=== PATIENT | male | born 1970 | race Caucasian/White ===

== ENCOUNTER 2016-10-27 16:33 | Emergency (ER) | payer SELFPAY ==
[~2016-10-27] VITALS: Ht 193 cm; Wt 77.0 kg
[~2016-10-27 16:33] MED LIST: ALPR.25 PO; CHLO25 PO; FOLI1TAB PO; GABA300 PO; OXYC5 PO; SOMA250T PO; THIA100T PO; Z.0.WALKERFRONT
[2016-10-27 16:34] VITALS: BP 133/90; PULSE 94; RESP 15; TEMP 98.1; O2SAT 96
[2016-10-27] MEDS ORDERED: TETANUS/DIPHTHERIA TOXOID ADULT 0.5 ML VIAL IM ONE (17:30)
[2016-10-27] MEDS ORDERED: ACETAMINOPHEN/HYDROcodone 325 MG/5 MG TAB PO ONE (17:30)
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
== END 2016-10-27 18:25 | disposition left against medical advice (07) ==
LOC: NETRI 16:33
DX: S09.90XA Unspecified injury of head, initial encounter (principal); Y08.02XA Assault by strike by baseball bat, initial encounter; Z23 Encounter for immunization
CPT/HCPCS: 70450; 72125; 73090; 90471; 90714